=== PATIENT | male | born 1935 | race Caucasian/White ===

== ENCOUNTER 2022-06-29 13:24 | Emergency (ER) | payer OTHER, MEDICARE, SELFPAY ==
[2022-06-29] VITALS (7 sets, daily range): BP systolic 164–191; BP diastolic 80–92; PULSE 78–93; RESP 14–27; TEMP 36.7–37; O2SAT 96–99; BMI 27.4
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
--- NOTE | 2022-06-29 13:29 | PC.NURSE ---
Dr. Myles assessed upon EMS arrival. Straight to CT of head/neck
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
[2022-06-29] MEDS: TET,DIPH,PERTUSS(ACELL),VAC/PF 0.5 ML SYRINGE IM (14:28)
[2022-06-29] MEDS: OXYCODONE/ACETAMINOPHEN 5/325 TABLET 2 TAB PO (14:42)
--- NOTE | 2022-06-29 17:44 | PC.NURSE ---
BP elevated on d/c, patient aware and said PCP addressing HTN. Patient did not want to to stay concerning BP
--- NOTE | 2022-06-29 18:03 | PC.NURSE ---
assessment done by provider
== END 2022-06-29 17:40 | disposition home or self-care (01) ==
PROVIDERS: Emergency Provider Emergency Medicine
DX: S02.672B Fracture of alveolus of left mandible, initial encounter for open fracture (principal); V89.2XXA Person injured in unspecified motor-vehicle accident, traffic, initial encounter; Z23 Encounter for immunization
CPT/HCPCS: 36415; 70450; 72125; 90471; 93005; 99284; 90715